=== PATIENT | female | born 1985 | race Caucasian/White ===

== ENCOUNTER → 2019-05-26 | Outpatient (CLI) | payer OTHER ==
--- NOTE | 2019-05-26 14:08 | RADIOLOGY REPORT (SQ) ---
EXAM DESCRIPTION: HIP LEFT AP/LATERAL COMPLETED DATE/TIME: 05/26/2019 1:23 pm REASON FOR STUDY: PAIN IN LEFT HIP COMPARISON: None. NUMBER OF VIEWS: Two views left hip. LIMITATIONS: None. FINDINGS: Hips are relatively maintained. Numerous tiny periarticular or intra-articular calcified bodies in the left hip. Bones otherwise intact. OTHER: No other significant finding. IMPRESSION: Probable loose bodies in the left hip. This may reflect osteochondromatosis. TECHNICAL DOCUMENTATION: JOB ID: [id number] Reading location - IP/workstation name: [email or web address]
== END ==
LOC: OD 12:41
PROVIDERS: ATTEND Family Medicine
DX: M25.552 Pain in left hip (principal); E03.9 Hypothyroidism, unspecified
CPT/HCPCS: 36415; 84443

== ENCOUNTER → 2019-12-30 | Outpatient (CLI) | payer OTHER | LOC: OD 10:43 | PROVIDERS: ATTEND Family Medicine | DX: E03.9 Hypothyroidism, unspecified (principal) | CPT/HCPCS: 36415; 84443 ==

== ENCOUNTER → 2020-04-27 | Outpatient (CLI) | payer OTHER ==
--- NOTE | 2020-04-27 11:25 | WOMENS IMAGING REPORT ---
EXAM DESCRIPTION: BILAT DIAGNOSTIC MAMMO W/CAD; U/S BREAST UNILAT LIMITED IMAGES COMPLETED DATE/TIME: 04/27/2020 9:27 am; 04/27/2020 10:06 am REASON FOR STUDY: D24.1 BENIGN NEOPLASM OF RIGHT BREAST; RT BREAST D24.1 D24.1 BENIGN NEOPLASM OF R IGHT BREAST COMPARISON: None. EXAM PARAMETERS: Standard craniocaudal and mediolateral oblique views of each breast recorded using digital acquisition. Subsequently, targeted sonographic evaluation was performed of the patient- identified palpable abnor mality. Read with the assistance of CAD: .[facility] - [employer] Version 9.2 LIMITATIONS: None. FINDINGS: RIGHT BREAST MASSES: No suspicious masses. CALCIFICATIONS: No new or suspicious calcifications. ARCHITECTURAL DISTORTION: None. ASYMMETRY: None noted. OTHER: No other significant findings. LEFT BREAST MASSES: The patient's palpable abnormality correlates to a 10 x 4 x 10 mm well-circumscribed hypoecho ic focus in parallel orientation with well-defined posterior margin, consistent with a small fibroade noma. CALCIFICATIONS: No new or suspicious calcifications. ARCHITECTURAL DISTORTION: None. ASYMMETRY: None noted. OTHER: No other significant finding. IMPRESSION: 10 x 4 x 10 mm fibroadenoma within the left breast. While there are no suspicious featu res on today's examination, in the setting of known previous imaging, this is incompletely characteri zed. BREAST DENSITY: c. The breasts are heterogeneously dense, which may obscure small masses. BIRAD: ASSESSMENT: BI-RADS 0. Incomplete. RECOMMENDATION: SPECIFIC INTERVENTION/IMAGING/CONSULTATION RECOMMENDED:Please obtain previous imagin g for the purposes of direct comparison, at which time an addendum will be placed to this examination . COMMUNICATION:The negative/benign results were communicated to the patient. COMMENT: The patient has been notified of the results by letter per MQSA requirements. Additional no tification policies are in place for contacting patient with suspicious or incomplete findings. Quality ID #225: The [employer] recommends an annual screening mammogram for women aged 40 years or over. This facility utilizes a reminder system to ensure that all patients receive reminder letters, and/or direct phone calls for appointments. This includes reminders for routine scr eening mammograms, diagnostic mammograms, or other Breast Imaging Interventions when appropriate. Th is patient will be placed in the appropriate reminder system. TECHNICAL DOCUMENTATION: FINDING NUMBER: (1) ASSESSMENT: (1) JOB ID: [id number] 2010 [employer]- All Rights Reserved Reading location - IP/workstation name: [email or web address]
== END ==
LOC: WI 08:52
PROVIDERS: ATTEND Family Medicine
DX: D24.2 Benign neoplasm of left breast (principal)
CPT/HCPCS: 76642; 77066

== ENCOUNTER → 2020-08-10 | Outpatient (CLI) | payer OTHER | LOC: OD 11:55 | PROVIDERS: ATTEND Family Medicine | DX: E03.9 Hypothyroidism, unspecified (principal) | CPT/HCPCS: 36415; 84443 ==